=== PATIENT | male | born 1985 | race Caucasian/White ===

== ENCOUNTER 2023-04-17 18:32 | Emergency (ER) | payer MEDICAID ==
[~2023-04-17] VITALS: Ht 167.6 cm; Wt 78.0 kg
[2023-04-17 18:56] VITALS: BP 143/90; PULSE 79; RESP 20; TEMP 98; O2SAT 99
[2023-04-17 19:50] LABS: BASOPHILS # (AUTO) 0.1 K/uL (0.00-0.22); BASOPHILS % (AUTO) 0.6 % (0.0-2.0); EOSINOPHILS # (AUTO) 0.1 K/uL (0-0.4); EOSINOPHILS % (AUTO) 1.5 % (0.0-4.0); HEMATOCRIT 49.5 % (36-52); HEMOGLOBIN 17.1 g/dL (12.0-18.0); LYMPHOCYTES # (AUTO) 1.5 K/uL (2.0-11.5); MEAN CORPUSCULAR HEMOGLOBIN 32 pg (27-31); MEAN CORPUSCULAR HGB CONC 35 g/dL (33-37); MEAN CORPUSCULAR VOLUME 92.2 fL (80-94); MONOCYTES # (AUTO) 0.7 K/uL (0.8-1.0); MONOCYTES % (AUTO) 7.7 % (1.7-9.3); NEUTROPHILS % (AUTO) 74.2 % (42.2-75.2); PLATELET COUNT (AUTO) 349 K/uL (140-450); RED BLOOD CELL COUNT(AUTO) 5.37 MIL/uL (4.20-6.10); RED CELL DISTRIBUTION WIDTH 12.9 % (11.6-13.7); WHITE BLOOD COUNT (AUTO) 9.4 K/uL (4.8-10.8)
[2023-04-17 20:03] LABS: ANION GAP 14.8 (8-16); CALCIUM 9.7 mg/dL (8.5-10.1); CARBON DIOXIDE 29.3 mmol/L (21-32); CREATININE 1.2 mg/dL (0.6-1.3); POTASSIUM 4.1 mmol/L (3.5-5.1)
[2023-04-17 20:09] LABS: ALBUMIN 4.4 g/dL (3.4-5.0); BILIRUBIN,DIRECT 0.1 mg/dL (0.0-0.3); TOTAL BILIRUBIN 0.4 mg/dL (0.0-1.0); TOTAL PROTEIN, SERUM 10.3 g/dL (6.4-8.2)
[2023-04-17] MEDS ORDERED: KETOROLAC 30 MG/ML VIAL IM ONE (20:15)
[2023-04-17 20:40] LABS: APPEARANCE,URINE CLEAR (CLEAR); BILIRUBIN,URINE NEGATIVE (NEGATIVE); BLOOD, URINE 2+ (NEGATIVE); COLOR,URINE YELLOW (YELLOW); LEUKOCYTE ESTERASE ,URINE NEGATIVE (NEGATIVE); NITRITE, URINE NEGATIVE (NEGATIVE); PROTEIN,URINE NEGATIVE (NEGATIVE); UGLUCOSE NEGATIVE (NEGATIVE); UROBILINOGEN,URINE 0.2 EU/dL (0.2 - 1)
[2023-04-17] MEDS ORDERED: IBUP-2213 PO (22:04)
[2023-04-17] MEDS ORDERED: TAMS0.4C96 PO (22:04)
[2023-04-17] MEDS ORDERED: NAPR-54 PO (23:22)
[2023-04-17 23:30] VITALS: BP 149/93; PULSE 69; RESP 16; TEMP 98.2; O2SAT 97
== END 2023-04-17 23:30 | disposition home or self-care (01) ==
LOC: MED 18:32
DX: S33.5XXA Sprain of ligaments of lumbar spine, initial encounter (principal); I10 Essential (primary) hypertension; Z79.899 Other long term (current) drug therapy; Z90.49 Acquired absence of other specified parts of digestive tract; X58.XXXA Exposure to other specified factors, initial encounter; Y93.89 Activity, other specified; Y92.89 Other specified places as the place of occurrence of the external cause; Y99.8 Other external cause status
CPT/HCPCS: 36415; 74176; 76705; 80048; 80076; 81003; 83690; 85025; 96372; 99285; J1885; Q0092

== ENCOUNTER 2024-02-02 19:40 | Inpatient (IN) | payer MEDICAID ==
[~2024-02-02] VITALS: Ht 167.6 cm; Wt 79.8 kg
[~2024-02-02 19:40] MED LIST: NAPR-337 PO
[2024-02-02 19:44] VITALS: BP 191/113; PULSE 72; RESP 18; TEMP 98; O2SAT 99
[2024-02-02 21:02] LABS: BASOPHILS % (AUTO) 0.4 % (0.0-2.0); EOSINOPHILS % (AUTO) 0.5 % (0.0-4.0); HEMATOCRIT 50.3 % (36-52); HEMOGLOBIN 16.9 g/dL (12.0-18.0); LYMPHOCYTES # (AUTO) 1.3 K/uL (2.0-11.5); LYMPHOCYTES % (AUTO) 13.5 % (20.5-51.1); MEAN CORPUSCULAR HEMOGLOBIN 32 pg (27-31); MEAN CORPUSCULAR HGB CONC 34 g/dL (33-37); MEAN CORPUSCULAR VOLUME 94.4 fL (80-94); MONOCYTES # (AUTO) 0.6 K/uL (0.8-1.0); NEUTROPHILS # (AUTO) 7.4 K/uL (1.8-7.7); NEUTROPHILS % (AUTO) 79.6 % (42.2-75.2); PLATELET COUNT (AUTO) 245 K/uL (140-450); RED BLOOD CELL COUNT(AUTO) 5.32 MIL/uL (4.20-6.10); RED CELL DISTRIBUTION WIDTH 13.3 % (11.6-13.7); WHITE BLOOD COUNT (AUTO) 9.3 K/uL (4.8-10.8)
[2024-02-02 21:15] LABS: ANION GAP 12.5 (8-16); CALCIUM 9.5 mg/dL (8.5-10.1); CARBON DIOXIDE 31.1 mmol/L (21-32); CREATININE 1.1 mg/dL (0.6-1.3); POTASSIUM 3.6 mmol/L (3.5-5.1)
[2024-02-02 21:16] LABS: APPEARANCE,URINE CLEAR (CLEAR); BILIRUBIN,URINE NEGATIVE (NEGATIVE); BLOOD, URINE 1+ (NEGATIVE); COLOR,URINE YELLOW (YELLOW); LEUKOCYTE ESTERASE ,URINE NEGATIVE (NEGATIVE); NITRITE, URINE NEGATIVE (NEGATIVE); PH,URINE 6.5 (5.0-9.0); PROTEIN,URINE NEGATIVE (NEGATIVE); UGLUCOSE NEGATIVE (NEGATIVE); UROBILINOGEN,URINE 0.2 EU/dL (0.2 - 1)
[2024-02-02 21:27] LABS: BACTERIA,URINE FEW /HPF (None Seen); SQUAMOUS EPITHELIAL CELL,UR 0-3 (FEW) /LPF (0-3 (FEW)); WBC,URINE 0-5 /HPF (0-5)
[2024-02-02] MEDS: ENALAPRILAT 2.5 MG/2 ML VIAL IVP ONE (22:31)
[2024-02-02] MEDS: ASPIRIN 81 MG TAB.CHEW PO ONE (22:35)
[2024-02-03] MEDS ORDERED: MORPHINE SULFATE 2 MG/ML SYR IVP PRN (00:40)
[2024-02-03] MEDS ORDERED: HYDROcodone/APAP 5/325 MG 1 TAB TAB PO PRN (00:40)
[2024-02-03] MEDS: hydrALAZINE 25 MG TAB PO ONE (01:19)
[2024-02-03] MEDS: hydrALAZINE 20 MG/ML VIAL IVP PRN (03:33)
[2024-02-03 08:30] VITALS: PULSE 67; RESP 17; O2SAT 98
[2024-02-03] MEDS: ENOXAPARIN 40 MG/0.4 ML SYR SUBQ SCH (09:00)
[2024-02-03] MEDS: ATORVASTATIN 20 MG TAB PO SCH (10:43)
[2024-02-03] MEDS: ASPIRIN 81 MG TAB.CHEW PO SCH (10:44)
[2024-02-03] MEDS: LOSARTAN 25 MG TAB PO SCH ×2 (10:44→10:55)
[2024-02-03] MEDS: ACETAMINOPHEN 325 MG TAB PO PRN (10:45)
[2024-02-03] MEDS: METOPROLOL 25 MG TAB PO SCH (10:45)
[2024-02-03 16:00] VITALS: BP 125/78; PULSE 76; RESP 16; TEMP 97.8; O2SAT 98
[2024-02-03] MEDS: LOSARTAN 25 MG TAB ONE (18:31)
[2024-02-03 19:42] LABS: AMPHETAMINE, URINE NEGATIVE ng/ml (NEG <=1000); BARBITURATE, URINE NEGATIVE ng/ml (NEG <=200); BENZODIAZEPINE, URINE NEGATIVE ng/mL (NEG <=200); CANNABINOID, URINE POSITIVE ng/mL (NEG <=50); COCAINE, URINE NEGATIVE ng/mL (NEG <=300); OPIATE, URINE NEGATIVE ng/mL (NEG <=2000); PHENCYCLIDINE SCREEN,URINE NEGATIVE ng/mL (NEG <=25)
[2024-02-03 20:00] VITALS: BP 175/109; PULSE 70; RESP 18; TEMP 97; O2SAT 98
[2024-02-04 04:00] VITALS: BP 117/70; PULSE 63; RESP 18; TEMP 97; O2SAT 98
[2024-02-04 05:31] LABS: BASOPHILS % (AUTO) 0.3 % (0.0-2.0); EOSINOPHILS # (AUTO) 0.1 K/uL (0-0.4); HEMOGLOBIN 16.9 g/dL (12.0-18.0); LYMPHOCYTES # (AUTO) 2.7 K/uL (2.0-11.5); LYMPHOCYTES % (AUTO) 30.8 % (20.5-51.1); MEAN CORPUSCULAR HEMOGLOBIN 32 pg (27-31); MEAN CORPUSCULAR HGB CONC 34 g/dL (33-37); MEAN CORPUSCULAR VOLUME 95.5 fL (80-94); MONOCYTES # (AUTO) 0.9 K/uL (0.8-1.0); MONOCYTES % (AUTO) 9.9 % (1.7-9.3); PLATELET COUNT (AUTO) 260 K/uL (140-450); RED BLOOD CELL COUNT(AUTO) 5.23 MIL/uL (4.20-6.10); RED CELL DISTRIBUTION WIDTH 13.3 % (11.6-13.7); WHITE BLOOD COUNT (AUTO) 8.7 K/uL (4.8-10.8)
[2024-02-04 06:12] LABS: ALBUMIN 4.2 g/dL (3.4-5.0); ANION GAP 12.2 (8-16); CALCIUM 9.3 mg/dL (8.5-10.1); CARBON DIOXIDE 28.4 mmol/L (21-32); MAGNESIUM 2.1 mg/dL (1.8-2.4); POTASSIUM 3.6 mmol/L (3.5-5.1); TOTAL PROTEIN, SERUM 7.9 g/dL (6.4-8.2)
[2024-02-04 08:00] VITALS: BP 179/104; PULSE 9; RESP 18; TEMP 98; O2SAT 98
[2024-02-04] MEDS ORDERED: LOSA-270 PO (08:11)
[2024-02-04] MEDS: LOSARTAN 50 MG TAB PO SCH (09:28)
[2024-02-04 10:36] VITALS: BP 183/100; PULSE 86; RESP 18; TEMP 98
[2024-02-04 12:06] VITALS: O2SAT 99
== END 2024-02-04 13:10 | disposition home or self-care (01) | DRG 199 ==
LOC: MED 19:40 → MTU 02-03 00:40 → MMU 02-03 08:20
PROVIDERS: ADMIT Student in an Organized Health Care Education/Training Program; ATTEND Student in an Organized Health Care Education/Training Program
DX: I16.0 Hypertensive urgency (principal); I21.A1 Myocardial infarction type 2; R04.2 Hemoptysis; I16.9 Hypertensive crisis, unspecified; I10 Essential (primary) hypertension; Z91.148 Patient's other noncompliance with medication regimen for other reason; Z90.49 Acquired absence of other specified parts of digestive tract
CPT/HCPCS: 36415; 71045; 80048; 80053; 80305; 81001; 82550; 83735; 84100; 84484; 85025; 85379; 87081; 93005; 96374; 96375; 99285; J0360; J1650; J3490; Q0092